=== PATIENT | female | born 2000 | race American Indian/Alaskan Native ===

== ENCOUNTER 2020-05-05 20:41 | Observation (INO) | payer OTHER ==
[2020-05-05] MEDS ORDERED: Sodium Chloride 0.9% 10 ML Syringe FLUSH PRN (21:07)
--- NOTE | 2020-05-05 21:13 | EDM.PDOC ---
ED HPI GENERAL MEDICAL PROBLEM - General Chief Complaint: Abdominal Pain Time Seen by Provider: 05/05/20 21:05 Source of Information: Reports: Patient - History of Present Illness INITIAL COMMENTS - FREE TEXT/NARRATIVE: Teresa is a 20 year old female whom presents to [place] ER due to worsening abdominal pain concern for gallbladder disease worsening over the last 2 weeks. Pain worse after eating, about 1 hr after meals. Teresa has not eaten much over the last 2 months and has lost about 40 pounds. Patient has been evaluated in [place] and referred to for gallbladder disease. Patient had not fevers until earlier today which was 101 and nausea today. Patient was evaluated in [place] area yesterday due to acute symptoms. Ultrasound was positive for gallstones blood work appears fairly normal. Outpatient follow-up with a general surgeon regarding surgical options. Teresa has had fever up to 101 over the last 24hours. [place] reports obtained by nursing staff through [employer]. Blood work: UA normal. hCG: Negative. WBC:4.5 normal differential. Hgb:13.7 Hct:42.0 Sodium: 140 Potassium: 3.3 Chol: 109 CO2: 22 BUN: 6 Creat: 0.8 GFR>60 LFTS normal: AST: 12 ALT: 9 Alk Phos: 98. RUQ US: Multiple cholelithiasis. No additional evidence to suggest cholecystitis. - Related Data Allergies Allergy/AdvReac Type Severity Reaction Status Date / Time mirtazapine [From Remeron] Allergy Seizure Verified 05/05/20 21:09 Home Meds: Home Meds LORazepam [Ativan] 0.5 mg PO ASDIRECTED 05/05/20 [History] Topiramate [Topamax] 25 mg PO BID 05/05/20 [History] cloNIDine [Catapres] 0.2 mg PO BEDTIME 05/05/20 [History] ED ROS GENERAL - Review of Systems Review Of Systems: Comprehensive ROS is negative, except as noted in HPI. ED EXAM, GI/ABD - Physical Exam Exam: See Below Course - Vital Signs Last Recorded V/S: Last Vital Signs Temp 36.4 C 05/05/20 21:16 Pulse 101 H 05/05/20 22:12 Resp 12 05/05/20 22:12 BP 129/90 05/05/20 22:12 Pulse Ox 95 05/05/20 22:12 - Orders/Labs/Meds Orders: Active Orders 24 hr Category Date Time Status Cardiac Monitoring [RC] .As Directed Care 05/05/20 21:10 Active Peripheral IV Care [RC] . DIRECTED Care 05/05/20 21:11 Active Piperacillin/Tazobactam [Zosyn] 4.5 gm Med 05/05/20 22:30 Ordered Sodium Chloride 0.9% [Normal Saline] 100 ml IV Q6H Sodium Chloride 0.9% [Saline Flush] Med 05/05/20 21:07 Active 10 ml FLUSH ASDIRECTED PRN Peripheral IV Insertion Adult [OM.PC] Urgent Oth 05/05/20 21:10 Ordered Medication Orders Fentanyl (Sublimaze) 10 - 30 mcg IVPUSH Q1H PRN PRN Reason: Pain Piperacillin Sod/Tazobactam (Sod 4.5 gm/ Sodium Chloride) 100 mls @ 100 mls/hr IV Q6H BRYANNA Sodium Chloride (Saline Flush) 10 ml FLUSH ASDIRECTED PRN PRN Reason: Keep Vein Open Last Admin: 05/05/20 21:32 Dose: 10 ml Documented by: RHETT Labs: Laboratory Tests 05/05/20 05/05/20 05/05/20 Range/Units 21:29 21:29 21:29 WBC 22.0 H (4.5-11.0) K/uL RBC 5.19 (3.30-5.50) M/uL Hgb 13.3 (12.0-15.0) g/dL Hct 42.0 (36.0-48.0) % MCV 81 (80-98) fL MCH 26 L (27-31) pg MCHC 32 (32-36) % Plt Count 278 (150-400) K/uL Neut % (Auto) 92 H (36-66) % Lymph % (Auto) 4 L (24-44) % Waller % (Auto) 4 (2-6) % Eos % (Auto) 0 L (2-4) % Baso % (Auto) 0 (0-1) % Sodium 144 (140-148) mmol/L Potassium 3.0 L (3.6-5.2) mmol/L Chloride 106 (100-108) mmol/L Carbon Dioxide 25 (21-32) mmol/L Anion Gap 16.0 H (5.0-14.0) mmol/L BUN 8 (7-18) mg/dL Creatinine 1.0 (0.6-1.0) mg/dL Est Cr Clr Drug Dosing 79.40 mL/min Estimated GFR (MDRD) > 60 (>60) Glucose 103 (74-106) mg/dL Calcium 9.2 (8.5-10.1) mg/dL Total Bilirubin (0.2-1.0) mg/dL Direct Bilirubin (0.0-0.2) mg/dL Indirect Bilirubin AST (15-37) U/L ALT (12-78) U/L Alkaline Phosphatase (46-116) U/L C-Reactive Protein 6.01 H (0.0-0.3) mg/dL Total Protein (6.4-8.2) g/dL Albumin (3.4-5.0) g/dL Globulin (2.3-3.5) g/dL Albumin/Globulin Ratio (1.2-2.2) Lipase 191 (73-393) U/L 05/05/20 Range/Units 21:29 WBC (4.5-11.0) K/uL RBC (3.30-5.50) M/uL Hgb (12.0-15.0) g/dL Hct (36.0-48.0) % MCV (80-98) fL MCH (27-31) pg MCHC (32-36) % Plt Count (150-400) K/uL Neut % (Auto) (36-66) % Lymph % (Auto) (24-44) % Waller % (Auto) (2-6) % Eos % (Auto) (2-4) % Baso % (Auto) (0-1) % Sodium (140-148) mmol/L Potassium (3.6-5.2) mmol/L Chloride (100-108) mmol/L Carbon Dioxide (21-32) mmol/L Anion Gap (5.0-14.0) mmol/L BUN (7-18) mg/dL Creatinine (0.6-1.0) mg/dL Est Cr Clr Drug Dosing mL/min Estimated GFR (MDRD) (>60) Glucose (74-106) mg/dL Calcium (8.5-10.1) mg/dL Total Bilirubin 0.8 (0.2-1.0) mg/dL Direct Bilirubin 0.20 (0.0-0.2) mg/dL Indirect Bilirubin 0.60 AST 12 L (15-37) U/L ALT 19 (12-78) U/L Alkaline Phosphatase 97 (46-116) U/L C-Reactive Protein (0.0-0.3) mg/dL Total Protein 7.9 (6.4-8.2) g/dL Albumin 4.2 (3.4-5.0) g/dL Globulin 3.7 H (2.3-3.5) g/dL Albumin/Globulin Ratio 1.1 L (1.2-2.2) Lipase (73-393) U/L Meds: Medications Generic Name Dose Route Start Last Admin Trade Name Freq PRN Reason Stop Dose Admin Fentanyl 10 - 30 mcg 05/05/20 22:28 Sublimaze IVPUSH Q1H PRN Pain Piperacillin Sod/Tazobactam 100 mls @ 100 mls/hr 05/05/20 22:30 Sod 4.5 gm/ Sodium Chloride IV Q6H BRYANNA Sodium Chloride 10 ml 05/05/20 21:07 05/05/20 21:32 Saline Flush FLUSH 10 ml ASDIRECTED PRN Administration Keep Vein Open Discontinued Medications Generic Name Dose Route Start Last Admin Trade Name Freq PRN Reason Stop Dose Admin Fentanyl 50 mcg 05/05/20 22:25 Sublimaze IVPUSH 05/05/20 22:26 ONETIME STA Metoclopramide HCl 5 mg 05/05/20 21:47 05/05/20 22:04 Reglan IV 05/05/20 21:48 5 mg ONETIME ONE Administration Pantoprazole Sodium 40 mg 05/05/20 21:46 05/05/20 22:05 Protonix Iv IVPUSH 05/05/20 21:47 40 mg ONETIME STA Administration - Re-Assessments/Exams Free Text/Narrative Re-Assessment/Exam: Contacted contract admin General Surgeon regarding blood work, with symptoms concerning for acute cholecystitis. Previous US completed in [facility] yesterday positive for gallstones. was negative yesterday. UA was negative for infection. WBC 22 with left shift 92% neutrophils. Lipase negative. Liver function tests negative. 05/05/20 22:34 Departure - Departure Time of Disposition: 22:39 Disposition: Admitted As Inpatient 64 Clinical Impression: Acute cholecystitis, Gallstones - Discharge Information Sepsis Event Note (ED) - Focused Exam Vital Signs: Vital Signs Temp Pulse Resp BP Pulse Ox 05/05/20 22:12 101 H 12 129/90 95 05/05/20 21:16 36.4 C 91 17 129/90 97 05/05/20 21:15 36.4 C 91 17 129/90 97 - Problem List & Annotations (1) Acute cholecystitis SNOMED Code(s): 81910708 Code(s): K81.0 - ACUTE CHOLECYSTITIS Status: Acute Current Visit: Yes (2) Gallstones SNOMED Code(s): 519545788 Code(s): K80.20 - CALCULUS OF GALLBLADDER W/O CHOLECYSTITIS W/O OBSTRUCTION Status: Acute Current Visit: Yes - My Orders Last 24 Hours: My Active Orders 05/05/20 21:07 Sodium Chloride 0.9% [Saline Flush] 10 ml FLUSH ASDIRECTED PRN 05/05/20 21:10 Cardiac Monitoring [RC] .As Directed Peripheral IV Insertion Adult [OM.PC] Urgent 05/05/20 21:11 Peripheral IV Care [RC] . DIRECTED 05/05/20 22:30 Piperacillin/Tazobactam [Zosyn] 4.5 gm Sodium Chloride 0.9% [Normal Saline] 100 ml IV Q6H - Assessment/Plan Last 24 Hours: My Active Orders 05/05/20 21:07 Sodium Chloride 0.9% [Saline Flush] 10 ml FLUSH ASDIRECTED PRN 05/05/20 21:10 Cardiac Monitoring [RC] .As Directed Peripheral IV Insertion Adult [OM.PC] Urgent 05/05/20 21:11 Peripheral IV Care [RC] . DIRECTED 05/05/20 22:30 Piperacillin/Tazobactam [Zosyn] 4.5 gm Sodium Chloride 0.9% [Normal Saline] 100 ml IV Q6H
[2020-05-05] MEDS ORDERED: Pantoprazole 40 MG Vial IVPUSH STA (21:46)
[2020-05-05] MEDS ORDERED: Metoclopramide 10 MG/2 ML SDV IV ONE (21:47)
[2020-05-05] MEDS ORDERED: fentaNYL 100 MCG/2 ML SDV IVPUSH STA (22:25)
[2020-05-05] MEDS ORDERED: fentaNYL 100 MCG/2 ML SDV IVPUSH PRN ×4 (22:28→22:35)
[2020-05-05] MEDS ORDERED: Piperacillin/Tazobactam 4.5 GM in Sodium Chloride 0.9% 100 ML IV SCH (22:30)
[2020-05-05] MEDS ORDERED: Ondansetron 4 MG/2 ML SDV IVPUSH PRN (22:35)
[2020-05-05] MEDS ORDERED: diphenhydrAMINE 25 MG Cap PO PRN (22:35)
[2020-05-05] MEDS ORDERED: diphenhydrAMINE 50 MG/ML SDV IVPUSH PRN ×2 (22:35)
[2020-05-05] MEDS ORDERED: Promethazine 25 MG in Sodium Chloride 0.9% 50 ML IV PRN (22:35)
[2020-05-05] MEDS ORDERED: Morphine 4 MG/ML Syringe IVPUSH PRN ×3 (22:35)
[2020-05-05] MEDS ORDERED: Promethazine 12.5 MG in Sodium Chloride 0.9% 50 ML IV PRN (22:35)
[2020-05-05] MEDS ORDERED: Scopolamine 1.5 MG Transdermal Patch TRDERM PRN (22:35)
[2020-05-05] MEDS ORDERED: Morphine 2 MG/ML SYRINGE IVPUSH PRN ×2 (22:56)
[2020-05-05] MEDS: Sodium Chloride 0.9% 1,000 ML IV SCH (23:30)
[2020-05-06] MEDS ORDERED: Potassium Chloride 20 MEQ in Premix Bag 3 BAG IV ONE (05:31)
[2020-05-06] MEDS ORDERED: Piperacillin/Tazobactam 4.5 GM in Sodium Chloride 0.9% 100 ML IV SCH (06:00)
[2020-05-06] MEDS ORDERED: fentaNYL 250 MCG/5 ML SDV ONE (07:56)
[2020-05-06] MEDS ORDERED: Neostigmine Methylsulfate 1 MG/ML 5 ML Syringe ONE (07:57)
[2020-05-06] MEDS ORDERED: Glycopyrrolate 0.2 MG/ML 5 ML MDV ONE (07:57)
[2020-05-06] MEDS ORDERED: Ondansetron 4 MG/2 ML SDV ONE (07:57)
[2020-05-06] MEDS ORDERED: Rocuronium 50 MG/5 ML Vial ONE (07:57)
[2020-05-06] MEDS ORDERED: Dexamethasone 4 MG/ML SDV ONE (07:57)
[2020-05-06] MEDS ORDERED: Succinylcholine 200 MG/10 ML MDV ONE (07:57)
[2020-05-06] MEDS ORDERED: Propofol 200 MG/20 ML SDV ONE (07:57)
[2020-05-06] MEDS: Potassium Chloride 20 MEQ, Lidocaine 1% 2 ML in Sodium Chloride 0.9% 100 ML IV SCH ×2 (08:29→11:42)
[2020-05-06] MEDS: Sodium Chloride 0.9% 1,000 ML IV SCH (08:36)
[2020-05-06] MEDS ORDERED: Ropivacaine 34 ML, dexAMETHasone 8 MG, EPINEPHrine 0.4 MG, Sodium Chloride 0.9% 43.6 ML NERVRT SCH ×4 (09:00)
[2020-05-06] MEDS ORDERED: Midazolam 1 MG/ML 2 ML SDV ONE (09:13)
[2020-05-06] MEDS ORDERED: Benzocaine/Cetylpyridinium/Menthol Lozenge MUCMEM PRN (09:26)
[2020-05-06] MEDS ORDERED: hydrOXYzine HCL 100 MG/2 ML SDV IM PRN (09:26)
[2020-05-06] MEDS ORDERED: Zolpidem 5 MG Tab PO PRN (09:26)
[2020-05-06] MEDS ORDERED: Docusate Sodium 100 MG Cap PO PRN (09:26)
[2020-05-06] MEDS: Lidocaine 1% with EPINEPHrine 1:100,000 50 ML MDV ONE ×2 (09:44→10:25)
[2020-05-06] MEDS: Bupivacaine 0.5% 50 ML MDV ONE ×2 (09:45→10:25)
[2020-05-06] MEDS ORDERED: Ketorolac 60 MG/2 ML SDV ONE (10:24)
[2020-05-06] MEDS ORDERED: hydrOXYzine HCL 100 MG/2 ML SDV IM ONE (10:26)
[2020-05-06] MEDS ORDERED: fentaNYL 100 MCG/2 ML SDV ONE (10:26)
[2020-05-06] MEDS: Acetaminophen/HYDROcodone 325-5 MG Tab PO PRN ×2 (11:42→15:40)
--- NOTE | 2020-05-06 13:54 | CONS ---
DATE OF SERVICE: 05/05/2020 REFERRING PHYSICIAN: CONSULTING PHYSICIAN: Adolfo Mckeon MD REASON FOR CONSULTATION: Abdominal pain. HISTORY OF PRESENT ILLNESS: A pleasant 20-year-old female who has had right upper quadrant abdominal pain associated with nausea for the last 2 months. The patient was worked up for this and recommended having gallbladder removed. She did not complete that. This was made worse by eating greasy or fatty foods. Pain is 1 to 3 out of 10 and is intermittent. Previous ultrasound showed cholelithiasis. SOCIAL HISTORY: She does not smoke. FAMILY HISTORY: Noncontributory. REVIEW OF SYSTEMS: GENERAL: No symptomatic issues. CARDIOVASCULAR: No history of myocardial infarction. RESPIRATORY: No shortness of breath. GASTROINTESTINAL: No acholic stools. GENITOURINARY: No dysuria. NEUROLOGICAL: No symptoms. PSYCH: No symptoms. The remainder of review of systems reviewed and is negative. PHYSICAL EXAMINATION: VITAL SIGNS: Temperature 97.5, blood pressure 129/90, respirations 17, 97% on room air. GENERAL: The patient resting comfortably. HEENT: Pupils are equal. NECK: Supple. LUNGS: Clear. CARDIOVASCULAR: Regular rhythm and rate. RESPIRATORY: Lungs clear to auscultation bilaterally. ABDOMEN: Pain with palpation in right upper quadrant. EXTREMITIES: Full range of motion. NEUROLOGICAL: Alert and oriented x3. PSYCH: No gross depression. LABORATORY RESULTS: Show white blood cell count of 22,000. IMAGING: I did review the imaging. The patient has reported cholelithiasis. ASSESSMENT AND PLAN: To the operating room for laparoscopic cholecystectomy. We discussed risks, benefits, alternatives, limitations, including, but not limited to, infection, bleeding, and cystic duct leaks, common bile duct injuries, possibly open surgery, hematoma, seroma, biloma, and other risks not listed here. The patient understands these risks and wishes to proceed. Adolfo Mckeon MD /[id number]
[2020-05-06] MEDS ORDERED: Piperacillin/Tazobactam/Dext 4.5 GM in Premix Bag 1 BAG IV SCH (14:00)
--- NOTE | 2020-05-06 14:37 | PN ---
DATE OF SERVICE: 05/06/2020 SUBJECTIVE: The patient is doing well. The patient's pain has improved. No nausea, vomiting, shortness of breath, or chest pain. OBJECTIVE: VITAL SIGNS: Stable. CARDIOVASCULAR: Regular rhythm and rate. RESPIRATORY: Lungs clear to auscultation bilaterally. ASSESSMENT AND PLAN: To the operating room for a laparoscopic cholecystectomy. We discussed risks, benefits, alternatives, and limitations again. Adolfo Mckeon MD /[id number]
[2020-05-06] MEDS ORDERED: Magnesium Hydroxide 400 MG/5 ML Susp 30 ML Cup PO ONE (15:18)
[2020-05-06] MEDS ORDERED: Lactulose Soln 10 GM/15 ML 15 ML UD Cup PO ONE (15:18)
--- NOTE | 2020-05-07 09:08 | DISCH ---
DISCHARGE DIAGNOSIS: Status post laparoscopic cholecystectomy. SUMMARY OF HOSPITAL COURSE: A pleasant 20-year-old female, who underwent an uneventful laparoscopic cholecystectomy. Prior to discharge, her pain was well controlled. She had no nausea, vomiting, shortness of breath, or chest pain. FOLLOWUP: With Surgery in 7 to 14 days. ACTIVITY: No lifting greater than 30 pounds x30 days. DISCHARGE MEDICATIONS: Please see MAR but include Roberts for pain.
--- NOTE | 2020-05-07 09:16 | OR ---
DATE OF PROCEDURE: 05/06/2020 SURGEON: Adolfo Mckeon MD PROCEDURE: Bilateral TAP block. COMPLICATIONS: None. EXTENSION SERVICE SPECIALIST: None. RISK: Risks, benefits, alternatives, and limitations including, but not limited to, infection, bleeding, and injury to abdominal structures were explained to the patient who wished to proceed. PROCEDURE IN DETAIL: The patient was placed in a supine position. The left transverse plane was then identified first using a 13 megahertz ultrasound probe. All solutions injected on the left side. On the right side, only few milliliter was injected due to the small amount of subcutaneous air, which precluded proper evaluation and then that aspect was then terminated. Adolfo Mckeon MD /[id number]
--- NOTE | 2020-05-07 09:58 | OR ---
DATE OF PROCEDURE: 05/06/2020 SURGEON: Adolfo Mckeon MD PROCEDURE: Laparoscopic cholecystectomy. PREOPERATIVE DIAGNOSES: 1. Cholelithiasis. 2. Cholecystitis. POSTOPERATIVE DIAGNOSES: 1. Cholelithiasis. 2. Cholecystitis. COMPLICATIONS: None. POLICE CADET: None. ANESTHESIA: General/local. RISKS: Risks, benefits, alternatives, and limitations including but not limited to infection, bleeding, and perforation were explained to the patient, along with cystic duct leaks, common bile duct injuries, possibility of open surgery, biloma, seroma, and other risks not listed here. PROCEDURE IN DETAIL: The patient was placed in supine position. A curvilinear supraumbilical incision was made. A Veress needle was used to enter the abdomen without abnormality. A drop test was performed without abnormality. The abdomen was subsequently insufflated. This was followed by a 10 and two 5 mm ports. The gallbladder was retracted cephalad. The infundibulum was retracted inferolaterally. Using blunt dissection, a "clear view" of the gallbladder was obtained with a single pulsatile structure entering the gallbladder and a single nonpulsatile structure entering the gallbladder. These were transected with a lara load in conjunction with clips. The remaining one-third of the gallbladder was removed off the gallbladder bed using blunt dissection. The patient had no real essential plane between the gallbladder and the liver proper. This resulted in some small petechiae type bleeding, which was addressed with electrocautery and some Nu-Knit gauze. The abdomen was also irrigated with 2 L of irrigation. Liquid was removed. The entry point was checked for enterotomies or injury. None was noted. The wounds were irrigated and closed with 3-0 Vicryl, 4-0 Vicryl, and Dermabond. The patient tolerated the procedure well. Adolfo Mckeon MD /[id number]
== END 2020-05-06 16:35 | disposition home or self-care (01) ==
LOC: JP.ED 20:41 → JP.MS 22:28
PROVIDERS: ADMIT Surgery; ATTEND Surgery
DX: K80.10 Calculus of gallbladder with chronic cholecystitis without obstruction (principal); F41.9 Anxiety disorder, unspecified; Z01.812 Encounter for preprocedural laboratory examination; Z88.8 Allergy status to other drugs, medicaments and biological substances; Z79.899 Other long term (current) drug therapy; Z20.828 Contact with and (suspected) exposure to other viral communicable diseases
CPT/HCPCS: 36415; 47562; 80048; 80076; 83690; 85025; 86140; 87635; 88304; 96361; 96366; 96367; 96368; 96374; 96375; 96376; 99284; A9270; C9113; G0378; J0171; J0330; J1100; J1885; J2001; J2250; J2405; J2543; J2704; J2710; J2765; J2795; J3010; J3410; J3480; J3490; J7030; J7050; U0002

== ENCOUNTER 2022-04-09 19:24 | Emergency (ER) | payer MEDICAID, OTHER ==
[2022-04-09] MEDS ORDERED: Lactated Ringers 1,000 ML IV ONE (19:45)
[2022-04-09] MEDS ORDERED: Sodium Chloride 0.9% 10 ML Syringe FLUSH PRN (19:46)
[2022-04-09] MEDS ORDERED: Ketorolac 30 MG/ML SDV IVPUSH ONE (19:46)
[2022-04-09] MEDS ORDERED: diphenhydrAMINE 50 MG/ML SDV IVPUSH ONE (19:46)
[2022-04-09] MEDS ORDERED: Prochlorperazine 10 MG/2 ML SDV IVPUSH ONE (19:46)
== END 2022-04-09 21:25 | disposition home or self-care (01) ==
LOC: JP.ED 19:24
DX: G43.909 Migraine, unspecified, not intractable, without status migrainosus (principal); Z88.8 Allergy status to other drugs, medicaments and biological substances; Z79.899 Other long term (current) drug therapy; Z86.16 Personal history of COVID-19
CPT/HCPCS: 96361; 96374; 96375; 99283; J0780; J1200; J1885; J3490; J7120

== ENCOUNTER 2022-05-06 08:26 | Emergency (ER) | payer MEDICAID ==
[2022-05-06] MEDS ORDERED: Ibuprofen 400 MG Tab PO ONE (10:20)
[2022-05-31 02:48] LABS: ESTIMATED GFR 105 mL/min (>60); TROPONIN I HIGH SENSITIVITY 6.8 pg/mL (<=60.3)
== END 2022-05-06 10:23 | disposition home or self-care (01) ==
LOC: JP.ED 08:26
DX: R07.89 Other chest pain (principal); M94.0 Chondrocostal junction syndrome [Tietze]
CPT/HCPCS: 36415; 71045; 80048; 84484; 85027; 93005; 99285; A9270

== ENCOUNTER 2022-10-16 14:29 | Emergency (ER) | payer MEDICAID ==
[2022-10-16] MEDS: Famotidine 20 MG Tab PO ONE (15:34)
== END 2022-10-16 16:48 | disposition home or self-care (01) ==
LOC: JP.ED 14:29
DX: J18.9 Pneumonia, unspecified organism (principal); D72.829 Elevated white blood cell count, unspecified; Z88.8 Allergy status to other drugs, medicaments and biological substances; Z79.82 Long term (current) use of aspirin; Z86.16 Personal history of COVID-19
CPT/HCPCS: 36415; 80305; 81025; 84484; 85025; 85379; 85651; 93005; 99285; A9270; 93010; 99283

== ENCOUNTER 2022-11-13 06:21 | Day surgery (SDC) | payer MEDICAID ==
[2022-11-13] MEDS ORDERED: Sodium Chloride 0.9% 1,000 ML IV SCH (07:00)
[2022-11-13] MEDS ORDERED: Propofol 200 MG/20 ML SDV ONE ×2 (07:23→08:30)
[2022-11-13] MEDS ORDERED: Midazolam 1 MG/ML 2 ML SDV ONE (07:23)
[2022-11-13] MEDS ORDERED: fentaNYL 100 MCG/2 ML SDV ONE (07:23)
== END 2022-11-13 10:15 | disposition home or self-care (01) ==
LOC: JP.SDS 06:21
PROVIDERS: ATTEND Surgery
DX: K52.9 Noninfective gastroenteritis and colitis, unspecified (principal); K31.89 Other diseases of stomach and duodenum; K22.89 Other specified disease of esophagus; F31.30 Bipolar disorder, current episode depressed, mild or moderate severity, unspecified; Z88.8 Allergy status to other drugs, medicaments and biological substances
CPT/HCPCS: 81025; 88305; J2250; J2704; J3010; J7030

== ENCOUNTER 2023-05-09 14:47 | Emergency (ER) | payer MEDICAID ==
[2023-05-09] MEDS ORDERED: Prochlorperazine 10 MG/2 ML SDV IVPUSH ONE (15:56)
[2023-05-09] MEDS ORDERED: Ketorolac 15 MG/ML SDV IVPUSH ONE (15:56)
[2023-05-09] MEDS ORDERED: Sodium Chloride 0.9% 1,000 ML IV ONE (15:56)
[2023-05-09] MEDS ORDERED: diphenhydrAMINE 50 MG/ML SDV IVPUSH ONE (16:47)
[2023-05-09] MEDS ORDERED: diphenhydrAMINE 50 MG/ML SDV ONE (16:48)
== END 2023-05-09 17:20 | disposition home or self-care (01) ==
LOC: JP.ED 14:47
DX: G43.909 Migraine, unspecified, not intractable, without status migrainosus (principal); Z88.8 Allergy status to other drugs, medicaments and biological substances; Z79.82 Long term (current) use of aspirin; Z79.899 Other long term (current) drug therapy; Z86.16 Personal history of COVID-19
CPT/HCPCS: 96361; 96374; 96375; 99283; J0780; J1200; J1885; J7030

== ENCOUNTER 2023-07-25 20:06 | Emergency (ER) | payer MEDICAID ==
[2023-07-25 20:29] LABS: BASOPHILS ABSOLUTE AUTO 0.05 K/uL (0.00-0.10); BASOPHILS PERCENT AUTO 0.6 % (0.1-1.3); EOSINOPHILS ABSOLUTE AUTO 0.08 K/uL (0.00-0.40); HEMATOCRIT 39.1 % (34.3-46.0); HEMOGLOBIN 13.7 g/dL (11.2-15.5); IMMATURE GRAN ABSOLUTE AUTO 0.03 K/uL (0.00-0.23); IMMATURE GRAN PERCENT AUTO 0.4 % (0.0-0.7); LYMPHOCYTES ABSOLUTE AUTO 1.83 K/uL (0.8-3.3); LYMPHOCYTES PERCENT AUTO 23.7 % (11.4-47.7); MEAN CORPUSCULAR HEMOGLOBIN 30.2 pg (31.6-35.5); MEAN CORPUSCULAR VOLUME 86.1 fL (81.4-99.0); MONOCYTES ABSOLUTE AUTO 0.32 K/uL (0.20-0.90); MONOCYTES PERCENT AUTO 4.1 % (3.3-12.6); NEUTROPHILS ABSOLUTE AUTO 5.41 K/uL (1.0-7.6); NEUTROPHILS PERCENT AUTO 70.2 % (40.0-78.1); PLATELET COUNT,PLT 226 K/uL (130-375); RED BLOOD CELL COUNT 4.54 M/uL (3.77-5.24); WHITE BLOOD CELL COUNT,WBC 7.7 K/uL (3.2-11.0)
[2023-07-25 20:50] LABS: A/G RATIO 1.1 (1.2-2.2); ALANINE AMINOTRANSFERASE,ALT 103 U/L (12-78); ALKALINE PHOSPHATASE 106 U/L (46-116); ASPARTATE AMNIOTRANSFERASE,AST 34 U/L (15-37); BILIRUBIN TOTAL 0.3 mg/dL (0.2-1.0); BLOOD UREA NITROGEN,BUN 9 mg/dL (7-18); C-REACTIVE PROTEIN 0.53 mg/dL (<0.50); CALCIUM 8.7 mg/dL (8.5-10.1); CARBON DIOXIDE,CO2 22 mmol/L (21-32); CHLORIDE,CL 106 mmol/L (100-108); CREATININE 0.8 mg/dL (0.6-1.0); EST CRCL DRUG DOSING (CG) 96.73 mL/min; ESTIMATED GFR 105 mL/min (>60); GLUCOSE RANDOM 91 mg/dL (74-106); POTASSIUM,K 3.7 mmol/L (3.6-5.2); PROTEIN TOTAL,TP 7.7 g/dL (6.4-8.2); SODIUM,NA 138 mmol/L (140-148)
[2023-07-25 20:51] LABS: ANION GAP 13.7 mmol/L (5.0-14.0)
[2023-07-25 20:51] LABS: CORONAVIRUS COVID-19 NAA NEGATIVE (NEGATIVE); INFLUENZA A NAA NEGATIVE (NEGATIVE); INFLUENZA B NAA NEGATIVE (NEGATIVE); RESPIRATORY SYNCYTIAL VIR NAA NEGATIVE (NEGATIVE)
[2023-07-25] MEDS ORDERED: Ketorolac 30 MG/ML SDV IVPUSH ONE (21:02)
[2023-07-25] MEDS ORDERED: Sodium Chloride 0.9% 1,000 ML IV ONE (21:02)
[2023-07-25] MEDS ORDERED: methylPREDNISolone Sodium Succinate 125 MG/2 ML SDV IVPUSH ONE (21:02)
== END 2023-07-25 22:44 | disposition home or self-care (01) ==
LOC: JP.ED 20:06
DX: J06.9 Acute upper respiratory infection, unspecified (principal); Z20.822 Contact with and (suspected) exposure to COVID-19; Z86.16 Personal history of COVID-19; Z79.82 Long term (current) use of aspirin; Z79.899 Other long term (current) drug therapy; Z91.048 Other nonmedicinal substance allergy status; Z88.8 Allergy status to other drugs, medicaments and biological substances
CPT/HCPCS: 0241U; 36415; 80053; 83605; 83690; 85025; 86140; 96361; 96374; 96375; 99284-25; J1885; J2930; J7030

== ENCOUNTER 2023-09-20 15:52 | Emergency (ER) | payer MEDICAID ==
[2023-09-20 17:07] LABS: BASOPHILS ABSOLUTE AUTO 0.05 K/uL (0.00-0.10); BASOPHILS PERCENT AUTO 0.4 % (0.1-1.3); EOSINOPHILS ABSOLUTE AUTO 0.05 K/uL (0.00-0.40); EOSINOPHILS PERCENT AUTO 0.4 % (0.0-5.4); HEMATOCRIT 44.4 % (34.3-46.0); HEMOGLOBIN 15.4 g/dL (11.2-15.5); IMMATURE GRAN PERCENT AUTO 0.2 % (0.0-0.7); LYMPHOCYTES ABSOLUTE AUTO 0.89 K/uL (0.8-3.3); MEAN CORPUSCULAR HEMOGLOBIN 30.5 pg (31.6-35.5); MEAN CORPUSCULAR HGB CONC 34.7 g/dL (31.6-35.5); MEAN CORPUSCULAR VOLUME 87.9 fL (81.4-99.0); MONOCYTES ABSOLUTE AUTO 0.29 K/uL (0.20-0.90); MONOCYTES PERCENT AUTO 2.6 % (3.3-12.6); NEUTROPHILS ABSOLUTE AUTO 9.88 K/uL (1.0-7.6); NEUTROPHILS PERCENT AUTO 88.4 % (40.0-78.1); PLATELET COUNT,PLT 255 K/uL (130-375); RED BLOOD CELL COUNT 5.05 M/uL (3.77-5.24); WHITE BLOOD CELL COUNT,WBC 11.2 K/uL (3.2-11.0)
[2023-09-20 17:09] LABS: IMMATURE GRAN ABSOLUTE AUTO 0.02 K/uL (0.00-0.23)
[2023-09-20] MEDS: Sodium Chloride 0.9% 1,000 ML IV SCH (17:15)
[2023-09-20] MEDS: Ondansetron 4 MG/2 ML SDV IVPUSH ONE (17:16)
[2023-09-20] MEDS: Ketorolac 30 MG/ML SDV IVPUSH ONE (17:16)
[2023-09-20 17:21] LABS: ANION GAP 15.4 mmol/L (5.0-14.0); CREATININE 0.8 mg/dL (0.6-1.0); EST CRCL DRUG DOSING (CG) 96.73 mL/min; POTASSIUM,K 3.9 mmol/L (3.6-5.2)
[2023-09-20 17:30] LABS: CORONAVIRUS COVID-19 NAA NEGATIVE (NEGATIVE); INFLUENZA A NAA NEGATIVE (NEGATIVE); INFLUENZA B NAA NEGATIVE (NEGATIVE); RESPIRATORY SYNCYTIAL VIR NAA NEGATIVE (NEGATIVE)
[2023-09-20 18:15] LABS: APPEARANCE,URINE CLEAR (CLEAR); BILIRUBIN,URINE SMALL (NEGATIVE); COLOR,URINE YELLOW (YELLOW); GLUCOSE,URINE NEGATIVE (NEGATIVE); KETONES,URINE NEGATIVE (NEGATIVE); LEUKOCYTE ESTERASE,URINE NEGATIVE (NEGATIVE); NITRITE,URINE NEGATIVE (NEGATIVE); OCCULT BLOOD,URINE NEGATIVE (NEGATIVE); PH,URINE 5.5 (5.0-8.0); PROTEIN,URINE NEGATIVE (NEGATIVE); UROBILINOGEN,URINE 0.2 EU/dL (0.2-1.0)
[2023-09-20 18:22] LABS: AMORPHOUS SEDIMENT,URINE NOT SEEN; BACTERIA,URINE MODERATE; EPITHELIAL CELLS,URINE FEW; MUCUS,URINE FEW; RBC,URINE NOT SEEN (0-5); WBC,URINE 0-5 (0-5)
== END 2023-09-20 18:55 | disposition home or self-care (01) ==
LOC: JP.ED 15:52
DX: K52.9 Noninfective gastroenteritis and colitis, unspecified (principal); Z88.8 Allergy status to other drugs, medicaments and biological substances; Z91.048 Other nonmedicinal substance allergy status; Z79.82 Long term (current) use of aspirin; Z79.899 Other long term (current) drug therapy; Z86.16 Personal history of COVID-19; Z90.49 Acquired absence of other specified parts of digestive tract
CPT/HCPCS: 0241U; 36415; 80048; 81001; 85025; 96361; 96374; 96375; 99284; J1885; J2405; J7030

== ENCOUNTER 2025-02-20 13:39 | Emergency (ER) | payer MEDICAID | END 2025-02-20 15:45 | disposition left against medical advice (07) | LOC: JP.ED 13:39 | DX: Z53.21 Procedure and treatment not carried out due to patient leaving prior to being seen by health care provider (principal) ==